=== PATIENT | male | born 1985 | race Caucasian/White ===

== ENCOUNTER 2020-03-11 18:26 | Emergency (ER) | payer SELFPAY ==
[~2020-03-11] VITALS: Ht 185.4 cm; Wt 72.7 kg
[2020-03-11] MEDS ORDERED: NAPROXEN 500 MG TABLET PO STA (19:28)
[2020-03-11] MEDS ORDERED: NAPR-514 PO (21:05)
--- NOTE | 2020-03-11 21:05 | PHYS DOC ---
Past Medical History Past Medical History: No Pertinent History Past Surgical History: No Surgical History Smoking Status: Current Every Day Smoker Alcohol Use: None General Adult EDM: Chief Complaint: KNEE INJURY HPI: HPI: Patient is a 34 year old male, accompanied by his significant other, who presents to the emergency department with complaints of left medial anterior knee pain and swelling for the last 4 days. Patient states he was working on a car when he felt something pop. He thinks that he may have twisted his knee. He denies any numbness, tingling, or decreased range of motion of the affected joint. Patient reports that he is tried using a [id number] knee sleeve and ibuprofen with no reduction in his pain. Patient states he did not take any ibuprofen today. Currently rates pain 8-9 out of 10 on the pain scale, he denies any alleviating factors, the pain is worse with bending and movement. Review of Systems: Review of Systems: Constitutional: Denies fever or chills. [] Musculoskeletal: See HPI Integument: Denies rash. [] Psychiatric: Denies depression or anxiety. [] Heart Score: Risk Factors: Risk Factors: DM, Current or recent (<one month) smoker, HTN, HLP, family history of CAD, obesity. Risk Scores: Score 0 - 3: 2.5% MACE over next 6 weeks - Discharge Home Score 4 - 6: 20.3% MACE over next 6 weeks - Admit for Clinical Observation Score 7 - 10: 72.7% MACE over next 6 weeks - Early Invasive Strategies Current Medications: Current Medications Medications (Trade) Dose Ordered Sig/[facility] Start Time Stop Time Status Last Admin Dose Admin Naproxen (Naprosyn) 500 mg 1X STAT 03/11/20 19:28 03/11/20 19:54 DC 03/11/20 20:05 500 MG Allergies: Allergies: Allergies Coded Allergies Type Severity Reaction Last Updated Verified No Known Drug Allergies 03/11/20 No Physical Exam: PE: Constitutional: Well developed, well nourished, no acute distress, non-toxic appearance. [] HENT: Normocephalic, atraumatic, bilateral external ears normal, nose normal. [] Eyes: PERRLA, EOMI, conjunctiva normal, no discharge. [] Neck: Normal range of motion, no stridor. [] Cardiovascular:Heart rate regular rhythm Lungs & Thorax: Respirations even and unlabored, no retractions, no respiratory distress Skin: Warm, dry, no erythema, no rash. [] Extremities: Left knee: Medial anterior tenderness palpation, negative anterior and posterior drawer testing, no crepitus, no obvious deformity, no erythema, ROM intact, 1+ edema to medial knee, Neurologic: Alert and oriented X 3, no focal deficits noted. [] Psychologic: Affect normal, judgement normal, mood normal. [] Current Patient Data: Vital Signs: Vital Signs Date Time Temp Pulse Resp B/P (MAP) Pulse Ox O2 Delivery O2 Flow Rate FiO2 03/11/20 19:20 97.8 64 20 119/75 (90) 98 Room Air 97.8 EKG: EKG: [] Radiology/Procedures: Radiology/Procedures: PROCEDURE: KNEE LEFT 3V PROCEDURE: KNEE LEFT 3V STUDY DATE: 03/11/2020 CLINICAL INDICATION / HISTORY: Reason: L knee pain after feeling pop 4 days ago / Spl. Instructions: / History: . TECHNIQUE: AP, lateral, and tunnel views of the left knee. COMPARISON: None FINDINGS: The osseous structures are intact. The articular surfaces are smooth. The joint space is maintained. No intra-articular loose bodies. The alignment is within normal limits. The soft tissues are unremarkable. A trace joint effusion is suggested. No radio-opaque foreign bodies are identified. IMPRESSION: No fracture or dislocation is identified. [] Course & Med Decision Making: Course & Med Decision Making Pertinent Labs and Imaging studies reviewed. (See chart for details) Patient is a 34-year-old male who presented to the emergency department with complaints of left anterior knee pain. X-ray was negative for any acute findings, mild effusion possibly present. The patient was encouraged to wear compression knee sleeve. Prescription written for naproxen 500 p.o. twice daily. Patient was instructed not to take ibuprofen while taking naproxen. Recommend ice, elevation, and rest of the affected extremity. Follow-up with Ivis Hameed if symptoms persist, return to the ER if symptoms worsen. Patient verbalized an understanding of home care, medications, follow-up, and return to ED instructions and was in agreement with the plan of care. [] Dragon Disclaimer: Dragon Disclaimer: This electronic medical record was generated, in whole or in part, using a voice recognition dictation system. Departure Departure Impression: Primary Impression: Left medial knee pain Disposition: HOME, SELF-CARE Condition: STABLE Referrals: NO PCP (PCP) ANN HAMEED MD Patient Instructions: Knee Pain, [id number] Additional Instructions: Fill prescription(s) and use as directed. Recommend application of ice, elevation, and rest of affected extremity. Wear the compression knee sleeve as discussed until follow up appointment. Follow-up with Dr. Hameed's office for repeat evaluation, call in the morning for an appointment, return to the ER if your symptoms worsen. Scripts Naproxen (NAPROXEN) 500 Mg Tablet 1 TAB PO BID PRN for PAIN for 10 Days, #20 TAB 0 Refills Prov: YARA LAUGHLIN [employer] 03/11/20 Justicifation of Admission Dx: Justifications for Admission: Justification of Admission Dx: N/A YARA LAUGHLIN [employer] Mar 11, 2020 21:05
[2020-03-11 21:18] VITALS: BP 126/77
--- NOTE | 2020-03-11 21:26 | RAD ---
PROCEDURE: KNEE LEFT 3V STUDY DATE: 03/11/2020 CLINICAL INDICATION / HISTORY: Reason: L knee pain after feeling pop 4 days ago / Spl. Instructions: / History: . TECHNIQUE: AP, lateral, and tunnel views of the left knee. COMPARISON: None FINDINGS: The osseous structures are intact. The articular surfaces are smooth. The joint space is maintained. No intra-articular loose bodies. The alignment is within normal limits. The soft tissues are unremarkable. A trace joint effusion is suggested. No radio-opaque foreign bodies are identified. IMPRESSION: No fracture or dislocation is identified. Electronically signed by: Leighton Perla MD (03/11/2020 9:23 PM) [facility] [place]
== END 2020-03-11 21:19 | disposition home or self-care (01) ==
LOC: ER 18:26
DX: M25.562 Pain in left knee (principal); R60.0 Localized edema; F17.200 Nicotine dependence, unspecified, uncomplicated
CPT/HCPCS: 73562; 99283